=== PATIENT | male | born 1995 | race Caucasian/White ===

== ENCOUNTER → 2016-05-29 06:48 | Day surgery (SDC) | payer OTHER ==
--- NOTE | 2016-05-24 07:47 | HP ---
PREOPERATIVE HISTORY AND PHYSICAL EXAM: DATE OF ADMISSION/SURGERY: 05/29/16 DATE OF OFFICE VISIT: 05/23/16 ATTENDING SURGEON: Ping Andino MD PROCEDURE: Open reduction and internal fixation, left ring finger metacarpal. CHIEF COMPLAINT: Pain along fourth metacarpal after injury. 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 He was playing basketball and got hit on the back of his hand and then hyperextended his ring finger. The next day, he was having continued pain, so he went to the [facility] at [place] and had an x-ray that showed a displaced oblique fracture of the fourth metacarpal. He is complaining of minimal pain particularly while he is wearing a splint and he denies any numbness or tingling. He denies other injury. After evaluation by Dr. Andino, he has consented to proceed with surgical intervention at this time in the form of an ORIF of the left fourth metacarpal. PAST MEDICAL HISTORY: Unremarkable. PAST SURGICAL HISTORY: 1. Left knee arthroscopy. 2. Surgery for testicular torsion. 3. [place] teeth extraction. CURRENT MEDICATIONS: None. ALLERGIES: No known drug allergies. FAMILY MEDICAL HISTORY: Noncontributory. SOCIAL HISTORY: The patient is a student at [employer]. 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 He denies tobacco use and recreational drug use. He does admit to alcohol use on occasion. REVIEW OF SYSTEMS: General: Negative for fevers, chills, or night sweats. No known anesthesia problems. HEENT: Negative for headache, lightheadedness, or syncopal episodes. Integumentary: Negative for abrasions, lesions, or open wounds. Cardiothoracic: Negative for chest pain, palpitations, or edema. Negative for hypertension. Pulmonary: Negative for shortness of breath with exertion, chronic cough, or COPD. GI: Negative for nausea, vomiting, diarrhea , constipation, or GERD. : Negative for nocturia, urinary frequency, urgency , history of UTIs, or kidney problems. Musculoskeletal: Positive for current complaint, otherwise negative. Neurological: Negative for paresthesias, numbness, history of seizure, stroke, or epilepsy. Endocrine: Negative for diabetes or thyroid issues. Hematologic: Negative for easy bruising, anemia, excessive bleeding, or history of DVT. Infectious Disease: Negative for history of MRSA, hepatitis C, or HIV. PHYSICAL EXAMINATION GENERAL: Well-developed, well-nourished, 20-year-old male in no acute distress. VITAL SIGNS: Height 6 feet 1 inch, weight 174 pounds, pulse rate 64, blood pressure 124/62. HEENT: Normocephalic, atraumatic. Pupils are equal, round, reactive to light and accommodation. Extraocular movements are intact. NECK: Supple. No palpable lymph nodes. Throat is clear. PULMONARY: Lungs are clear to auscultation bilaterally. No wheezes, rales, or rhonchi. CARDIOTHORACIC: Regular rate and rhythm. S1, S2. No murmurs, rubs, or gallops. No edema. ABDOMEN: Positive bowel sounds. Soft, nontender. NEUROLOGICAL: Alert and oriented x3. Cranial nerves II through XII are intact. Sensation is intact to light touch. MUSCULOSKELETAL: On exam of the left hand, there is a moderate amount of ecchymosis and swelling over the dorsum. His ring finger deviates toward his middle finger in full extension and it droops. He does not have full extension of the finger. When he makes a fist, there is no rotational deformity. He has intact neurovascular function and skin is intact. DIAGNOSTIC STUDIES: Imaging studies: X-rays of the left hand show shortening and displacement of an oblique fracture of the fourth metacarpal. IMPRESSION: Left fourth metacarpal fracture. PLAN: The patient is scheduled for an open reduction internal fixation of the left ring finger metacarpal with Dr. Andino on 05/29/16. He will return to the office 10 to 14 days postop for followup and suture removal. A prescription for [place] was e- scribed to the patient's pharmacy for postoperative pain management. DENNIS FARNSWORTH [id number]/[facility] #: [id number] MTDHaleigh
[~2016-05-29 06:48] MED LIST: Acetaminophen TAB* 325 MG PO PRN; Buffered Lidocaine 1% SYRIN* 3 ML/SYR SYRINGE INTRADERM ONE; Bupivacaine 0.5% SDV PF* 30 ML VIAL ONE; HYDROcodone/ACETAMIN 5-325 MG* 1 TAB PO PRN; HYDROmorphone* 1 MG/ML 1 ML SYR IV PRN; Ketorolac INJ* 30 MG/ML 1 ML VIAL ONE; Lidocaine 0.5%* 50 ML SDV ONE; Midazolam* 1 MG/ML 2 ML VIAL (2 MG) ONE; Ondansetron INJ* 2 MG/ML VIAL IV PRN; PROCHLORPERAZINE INJ 5 MG/ML 2 ML VIAL IV PRN; ceFAZolin 2 GM PREMIX(*) 2 GM/50 ML BAG IVPB ONE; diPHENhydraMINE IV* 50 MG/ML 1 ml VIAL (BENADRYL) ONE; fentaNYL* 50 MCG/ML 2 ML VIAL (100 MCG VIAL) ONE
[2016-05-29 09:07] VITALS: BP 114/79
--- NOTE | 2016-05-29 23:23 | OP ---
DATE OF OPERATION: 05/29/16 [facility] DATE OF : 89 SURGEON: Dr. Andino. SOFTWARE QUALITY TEST ENGINEER: DENNIS Pittman. ANESTHESIOLOGIST: Dr. Bowen ANESTHESIA: IV regional. PRE-OP DIAGNOSIS: Left fourth metacarpal fracture. POST-OP DIAGNOSIS: Left fourth metacarpal fracture. OPERATIVE PROCEDURE: Open reduction and internal fixation of left fourth metacarpal fracture. ESTIMATED BLOOD LOSS: Zero. TOURNIQUET TIME: About 30 minutes. INDICATIONS: Mr. Lo is a 20-year-old male who injured his left hand playing basketball who suffered a fracture of his fourth metacarpal. He has a rotational deformity and presents for ORIF of the left fourth metacarpal. DESCRIPTION OF PROCEDURE: The patient was brought to the operating room, was given an IV regional anesthetic with a tourniquet around his left upper arm. The skin of his left upper extremity was prepped and draped in the usual sterile fashion. A longitudinal incision was made over the fourth metacarpal. We carefully dissected through the subcutaneous tissue and around the extensor tendons, which were retracted. The periosteum was incised and the fractured fragments were located and the fracture hematoma debrided with longitudinal traction and rotation. The fracture was reduced and anatomically secured with a clamp, then placed three 2.0 mm lag screws using the appropriate drill. The position of the hardware and fractured fragments were checked on the C-arm in the AP and lateral views and found to be satisfactory. The wound was irrigated. The periosteum was repaired with a 4- 0 Polysorb suture and the skin edges were reapproximated with 4-0 nylon suture. The wound was dressed with Xeroform, 4x4, Webril, and a maricel tape to the middle finger. The patient tolerated the procedure well and was brought to the recovery room in good condition. [id number]/[facility] #: [id number] [facility] HOSPITALHaleigh
--- NOTE | 2016-05-30 14:36 | RAD ---
INDICATION: Traumatic fracture of the fourth metacarpal operative reduction and internal fixation. COMPARISON: There are no prior studies available for comparison. TECHNIQUE: 9 seconds of intermittent fluoroscopic guidance were provided and 2 spot films of the left hand were obtained in the operating room. FINDINGS: The films demonstrate placement of 3 surgical screws spanning an oblique nondisplaced fracture of the proximal fourth metacarpal. IMPRESSION: INTRAOPERATIVE CONTROL FILMS. CPT II Codes: 6045F
== END | disposition home or self-care (01) ==
LOC: OREAST 06:48
PROVIDERS: ATTEND Orthopaedic Surgery
DX: S62.305A Unspecified fracture of fourth metacarpal bone, left hand, initial encounter for closed fracture (principal); X58.XXXA Exposure to other specified factors, initial encounter
CPT/HCPCS: 76000; C1713; J0690; J1200; J1885; J2250; J3010